=== PATIENT | female | born 1975 ===

== ENCOUNTER 2022-09-30 05:20 | Inpatient (IN) | payer MEDICAID, SELFPAY ==
[2022-09-30] VITALS (23 sets, daily range): BP systolic 117–148; BP diastolic 69–88; PULSE 62–88; RESP 16–18; TEMP 36.3–36.8; O2SAT 97–98
[2022-09-30 06:55] LABS: SARS PCR* Negative SARS-CoV-2 (Negative)
[2022-09-30 06:57] LABS: Basophils Percent Auto 0.2 % (0.0-3.0); Eosinophils Percent Auto 0.2 % (0.0-7.0); Hematocrit 40.7 % (33.0-51.0); Immature Granulocytes Pct Auto 0.7 %; Lymphocytes Percent Auto 13.4 % (20-44); Mean Corpuscular HGB Conc 34 gm/dL (32-36); Mean Corpuscular Hemoglobin 30 pg (26-34); Mean Corpuscular Volume 88 fL (80-100); Monocytes Percent Auto 4.4 % (0.0-11.0); Neutrophils Percent Auto 81.1 % (42.0-72.0); Platelet Count* 289 K/uL (140-440); RDW Coefficient of Variation % 13.5 % (11.5-15.5); Red Blood Count 4.61 m/uL (4.00-5.20); White Blood Count* 15.86 K/uL (4.50-11.00)
[2022-09-30 07:02] LABS: Slide Review Reflex No
--- NOTE | 2022-09-30 11:53 | P.OBHP_ITS ---
OB - H&P: HPI Labor/Induction History of Present Illness Time Seen by Provider: 11:30 Date Seen: 09/30/22 Chief Complaint: The patient is a 47 year old 15 para 7 at 38 2/7 weeks gestation by LMP c/w 9w US, who presented with regular escalating contractions. Chief complaint: Maternity : 15 Para: 7 Date of last menstrual period: 01/05/22 Estimated date of delivery: 10/12/22 Gestational age based on last menstrual period: 38 Narrative: Ambar Lam is a 47 year old 15 para 7 at 38 2/7 weeks gestation by LMP c/w 9w US, who presented to [facility] with regular escalating contractions last night. She was 2cm and was sent here to [facility] for triage/possible labor as [facility] is on divert. Here pt was checked and 4cm and admitted due to cervical change. Since that time ctxs have slowed down and at one point were every 15min. Cervix has continued to slowly change and nurses checked about 2 hours ago and 6.6cm. Now ctxs are back to every 8min per pt. She is comforatable b/w contractions. Lightly breathing through ctxs. No LOF. No recent illness. She reports has been uncomplicated. Comments: Pt has had 7 terms 's. 2 of which were SGA but otherwise uncomplicated. 7 fi rst trimester SAB's. History of Present Dating criteria: based on LMP Ultrasounds: normal 1st trimester US (9w3d c/w LMP), abnormal US findings (05/31/22 anatomy with possible small pericardial effusion. 06/28/22 US showed persistent small pericardial effusion. echo normal with 'tiny amount pericardial effusion (normal physiologic amount)) and other (Growth US 09/28/22 EFW 57%. BPP 8/8. getting weekly BPP's since 36 wks) Medical complications: none Labs Blood type: B (+) positive Rubella: immune RPR/VDLR: nonreactive GBS status: negative HBsAG: negative Meds Home Medications and Allergies Home Medications Medication Instructions Recorded Confirmed Type aspirin 81 mg tablet,delayed 81 mg PO DAILY 09/30/22 09/30/22 History release OB - H&P: Exam Physical Exam: Vital signs: Temp Pulse Resp BP Pulse Ox 97.9 F 75 16 121/71 97 09/30/22 10:30 09/30/22 07:46 09/30/22 05:08 09/30/22 07:46 09/30/22 05:13 Constitutional: Constitutional: no acute distress and cooperative Comments: breathing mildly through contractions when I spoke with her initially. 1 hour later definitely breathing more through contractions. comfortable inbetween. Routine HEENT Exam: Head: Present atraumatic, normal inspection and normocephalic Eye: Present normal appearance ENT: Present mucous membranes moist Routine Respiratory Exam: Respiratory: Present CTA bilaterally Routine Cardiovascular Exam: Cardiovascular: RRR Detailed Abdominal Exam: Comments: gravid c/w dates Detailed Labor and Delivery Exam: Dilation (cm): 6 Effacement (%): 75 Cervix position: mid Consistency: soft Fetus (Single): Station: -2 Heart Rate Baseline: 120 Monitor Accelerations: Present Monitor Decelerations: None Analytics Leader Variability: Moderate (6-25) (Thsi was FHM earlier this morning. They have been doing doptones since) Routine Extremities Exam: Extremities: Present pedal edema (trace bilaterally) Routine Neurological Exam: Present alert, oriented X3 and normal speech OB - Results Labs Labs: Short CBC 09/30/22 Range/Units 06:10 WBC 15.86 H (4.50-11.00) K/uL Hgb 14.0 (12.0-16.0) gm/dL Hct 40.7 (33.0-51.0) % Plt Count 289 (140-440) K/uL OB - Problem Based A/P Additional Plan (1) Grand multiparity: Status: Acute (2) Term : Status: Acute Plan Patient initially make good cervical change, now remains at 6cm but appears to be in process of starting to transition as contractions now increasing in strength and frequency. Delivery/Labor/Induction Plan Plan: expectant management
[2022-09-30] MEDS: LIDOCAINE 1% MDV 20 ML INJECTION (16:45)
[2022-09-30] MEDS: OXYTOCIN 30 unit/500 ML in NS 30 UNIT/500 ML BAG 300 UNIT IVPB (16:46)
--- NOTE | 2022-09-30 17:03 | P.OBPRC_ITS ---
Procedure Delivery date: 09/30/22 Procedure Done: only Procedure Details: The patient is a 47 year-old admitted on 09/29/22 at 38 Weeks, 2 Days gestation for active labor.? Cervical exam at [facility] was 2cm and she was sent straight here as [facility] was on divert. On arrival here she was 4 cm with membranes intact in vertex presentation.? Contractions were every 5 minutes.? heart rate demonstrated baseline 120 bpm with moderate variability, + accelerations, - decelerations; a category 1 tracing.?Contractions then decreased significant but she continued to slowly make cervical change. AROM occurred at 1329 with clear fluid. ? Labor Analgesia:? None ? Pitocin:? No ? Labor onset:? 2330 ? Complete:? 1547 ? Pushing:? 1547 ? doptones during second stage were 110-130's. ? At 1627 a viable male infant delivered in vertex OP presentation over intact perineum via spontaneous vaginal delivery.? was placed on maternal abdomen.? Cord was clamped and cut after a 60+ second delay.? Nose and mouth were bulb suctioned.? Infant weight pending.? 8 at 1 minute and 9 at 5 minutes.? Shoulder dystocia: no.? Nuchal cord: no. ? Placenta delivered spontaneously and complete at 1637 with a 3 vessel cord. ? Mother and were stable after delivery. ? Lacerations:? 2nd degree, 1% lidocaine used for anesthesia. Repaired with 3-0 vicryl by standard technique. ? Blood loss: 200 mL. Blood loss measurement type: EBL ? Sponge and needles counts are correct. Intrapartal Events: None Delivery monitor: external FHT (with doppler per pt preference) Route of delivery: Episiotomy description: None Laceration description: Perineal - 2nd Degree Delivery repair: Vicryl Estimated blood loss (mL): 200 Anesthesia type: None Disposition: floor [place] Infant Gender: Male presentation: vertex Placental Delivery Description: Spontaneous Cord Description: 3 Vessels
[2022-09-30] MEDS: SODIUM CHLORIDE 0.9 % (FLUSH) 10 ML SYRINGE IVF (18:05)
[2022-10-01 04:29] VITALS: BP 126/78; PULSE 57; RESP 16; TEMP 36.8
[2022-10-01 07:23] LABS: Hemoglobin* 12.7 gm/dL (12.0-16.0)
[2022-10-01 07:45] VITALS: BP 119/79; PULSE 73; RESP 15; TEMP 36.5; O2SAT 95
[2022-10-01 12:10] VITALS: BP 125/70; PULSE 78; RESP 16; TEMP 36.5; O2SAT 97
--- NOTE | 2022-10-01 12:37 | P.DS_ITS ---
DS: Providers Provider Time Seen by Provider: 12:42 Date Seen: 10/01/22 Date of admission: 09/30/22 05:20 Primary care physician: [facility] Jeffery PARSON Admitting Clinician: Erika Cortez MD Attending Physician on discharge: Erika Cortez MD Date of Discharge: 10/01/22 DS: Diagnosis Discharge Diagnosis (1) Term : Status: Acute (2) Grand multiparity: Status: Acute Exam Narrative: Exam Narrative: General: Well-appearing adult female. Alert, oriented and appropriate. No acute distress. HEENT: EOMI, no conjunctival injection. No nasal discharge. Mucous membranes moist. Neck: Supple. Cardiovascular: Regular rate and rhythm, no murmurs, rubs or extra heart sounds. Pulmonary: Clear to auscultation bilaterally. No wheezes, rales or rhonchi. Breathing comfortably on room air. Abdominal: Soft, nontender, nondistended. Fundus at the level of the umbilicus, firm. Extremities: Warm and well perfused. Trace edema bilaterally. Neuro: Grossly normal strength and sensation. No focal deficits. Psych: Appropriate affect. Const: Vital Signs, click to edit/add: Vital Signs - 24 hr 09/30/22 13:12 09/30/22 13:57 09/30/22 14:31 Temperature 98.2 F Pulse Rate 70 62 Pulse Rate [Pulse Oximeter] Respiratory Rate Blood Pressure 130/69 135/74 Blood Pressure [Ri ght Arm] Pulse Oximetry Oxygen Delivery Ga thod 09/30/22 15:06 09/30/22 16:38 09/30/22 16:57 Temperature Pulse Rate 88 75 68 Pulse Rate [Pulse Oximeter] Respiratory Rate Blood Pressure 135/88 136/73 148/77 H Blood Pressure [Ri ght Arm] Pulse Oximetry Oxygen Delivery Ga thod 09/30/22 16:58 09/30/22 17:12 09/30/22 17:27 Temperature Pulse Rate 68 78 72 Pulse Rate [Pulse Oximeter] Respiratory Rate Blood Pressure 135/69 136/69 128/70 Blood Pressure [Ri ght Arm] Pulse Oximetry Oxygen Delivery Ga thod 09/30/22 17:42 09/30/22 17:57 09/30/22 18:20 Temperature Pulse Rate 75 75 79 Pulse Rate [Pulse Oximeter] Respiratory Rate Blood Pressure 140/77 H 136/69 144/74 H Blood Pressure [Ri ght Arm] Pulse Oximetry Oxygen Delivery Me thod 09/30/22 18:27 09/30/22 18:42 09/30/22 17:00 Temperature 98 F Pulse Rate 80 78 Pulse Rate [Pulse Oximeter] Respiratory Rate 16 Blood Pressure 117/71 121/71 Blood Pressure [Ri ght Arm] Pulse Oximetry Oxygen Delivery Me thod 09/30/22 20:35 10/01/22 04:29 10/01/22 07:45 Temperature 97.4 F L 98.3 F 97.7 F Pulse Rate Pulse Rate [Pulse Oximeter] 83 57 L 73 Respiratory Rate 16 16 15 Blood Pressure Blood Pressure [Ri ght Arm] 133/82 126/78 119/79 Pulse Oximetry 97 95 Oxygen Delivery Me thod Room Air Room Air Room Air 10/01/22 12:10 Temperature 97.7 F Pulse Rate Pulse Rate [Pulse Oximeter] 78 Respiratory Rate 16 Blood Pressure Blood Pressure [Ri ght Arm] 125/70 Pulse Oximetry 97 Oxygen Delivery Me thod Room Air OB - DS: Summary Hospital Course Hospital Course: The patient is a 47 year old G 15 P 7 at 38 weeks gestation that was admitted to the Center on 09/30/22 for labor. complicated by grand multiparity and AMA. She had an uncomplicated vaginal delivery. She delivered a viable male . She is breast feeding. the patient has done well. [place] Gender: Male Time Spent with Patient Time attestation: Total time spent providing and/or coordinating discharge services: Discharge Plan Discharge Disposition: Home, Self-Care Date of Admission: 09/30/22 05:20 Primary Care Provider: Provider,Not a Local Condition: Stable Anticipated Discharge Date/Time: 10/01/22 16:00 Discharge Medications: New acetaminophen 500 mg Tablet 1,000 mg PO Q6H PRN30 Days Qty: 30 0RF docusate sodium 100 mg Capsule 100 mg PO DAILY 30 Days Qty: 30 0RF ibuprofen 600 mg Tablet 600 mg PO Q6H PRN30 Days Qty: 30 0RF Discontinued aspirin 81 mg tablet,delayed release (DR/EC) 81 mg PO DAILY Label Comments: TAKE ONE TABLET BY MOUTH EVERY DAY STARTING AT 12 WEEKS Discharge Orders: Discharge Order (Routine); Ordered 10/01/22 Ordered By: Erika Cortez Activity Level: Activity as Tolerated Discharge Diet: Regular Follow Up Appointments: Provider,Not a Local [Primary Care Provider] - (Follow-up for 6 week post- visit with [facility] OB provider. Patient to schedule.) Forms: 27 [address] Info Instructions Discharge Comments: Stable Day 1
[2022-10-01 16:20] VITALS: BP 117/79; PULSE 77; RESP 15; TEMP 36.7; O2SAT 97
== END 2022-10-01 18:17 | disposition home or self-care (01) | DRG 807 ==
LOC: OB OUT 06:10 → OB 06:10
PROVIDERS: Family Medicine; Admitting Provider Family Medicine; Visit Provider Family Medicine
DX: O70.1 Second degree perineal laceration during delivery (principal); Z37.0 Single live birth; Z3A.38 38 weeks gestation of pregnancy
CPT/HCPCS: 36415; 85018; 85025; 86850; 86900; 86901; 87635